=== PATIENT | male | born 1965 | race Caucasian/White ===

== ENCOUNTER 2024-04-05 08:20 | Outpatient (AMB) | payer OTHER, SELFPAY ==
--- NOTE | 2024-04-05 08:23 | A.OFFVIS_ITS ---
Vital Signs 3 04/05/24 08:33 Height 5 ft 10 in Weight 210 lb BMI 30.1 BP 135/92 H Blood Pressure Location Rt brachial Position Sitting Pulse 104 H Intake Visit Reasons: Foot Wound Intake Note: This patient presents for left foot wound. Pt c/o; left foot wound. Instructional Resource Teacher Required: No Accompanied by: Self / Same As Patient Allergies No Known Allergies Allergy (Verified 04/05/24 08:34) HPI Comments Details: 59-year-old male patient with history of diabetes, coronary artery disease, [place], CABG x4 vessels presenting with a nonhealing ulcer of the left foot dorsal surface after injuring it on his bed. He developed a staph infection in his been undergoing wound care management for the past several months including wound VAC placement. He now has a granulated base and presents today to discuss possible skin graft to the left foot. He denies any significant pain associated with the wound. He denies a history of previous surgery in the left leg. [facility] Medical History (Updated 04/05/24 @ 09:49 by Daniel Moreno MD) Diabetes mellitus [place] (myocardial infarction) CAD (coronary artery disease) Surgical History (Updated 04/05/24 @ 09:44 by Daniel Moreno MD) S/P CABG x 4 No pertinent past surgical history Family History (Updated 04/05/24 @ 08:36 by TANMAY Quinones) Other Family history unknown Social History (Updated 04/05/24 @ 08:35 by TANMAY Quinones) Unable to assess alcohol history related to: Unknown Review of Systems Const All systems reviewed & are unremarkable except as noted in HPI and below Physical Exam Vital Signs: Last Vital Signs Pulse 104 H 04/05/24 08:33 BP 135/92 H 04/05/24 08:33 BMI result Body Mass Index 30.1 Const General: cooperative and no acute distress Nutritional Appearance: well nourished Orientation/consciousness: patient oriented x3 Limitations: no limitations HEENT Head: Yes normocephalic and Yes atraumatic Ears: hearing grossly normal bilaterally Resp Effort & Inspection: normal respiratory effort, no audible wheezes, no cough and no respiratory distress Cardio Jugular venous distension: no JVD GI Inspection: Yes normal to inspection Skin Other: Warm, dry, no rash Neuro General: patient oriented x3 Extrem Other: 5.6 x 2.5 cm tear shaped ulceration with granulated base and no exposed bone or tendon. No surrounding erythema or skin necrosis. General: Yes no clubbing, cyanosis or edema Ankle/foot/toe images: 2 1. Site of ulceration left foot Assessment & Plan Assessment & Plan (1) Diabetic foot ulcer: Code(s): E11.621 - Type 2 diabetes mellitus with foot ulcer; L97.509 - Non-pressure chronic ulcer of other part of unspecified foot with unspecified severity Category: Medical Qualifiers: Diabetic foot ulcer location: midfoot Diabetes mellitus type: type 2 L aterality: left Non-pressure ulcer stage: with muscle involvement without evidence of necrosis Qualified Code(s): E11.621 - Type 2 diabetes mellitus with foot ulcer; L97.425 - Non-pressure chronic ulcer of left heel and midfoot with muscle involvement without evidence of necrosis Plan 59-year-old male patient presenting with a nonhealing ulcer of the left foot which has an excellent granulated base measuring 5.6 x 2.5 cm located in the midfoot. He would be an excellent candidate for a split-thickness skin graft for wound closure. We discussed the procedure, risks, and alternatives, we also discussed staying off his feet as much as possible to allow good adherence of the meshed graft to the wound base. After discussion of the procedure, risks, and alternatives, he consents to a split-thickness skin graft from the left hip to the left foot. This will be scheduled as a short-stay surgery. Coding Level of Care Code New Pt Level 4 (88483) Diagnoses Diabetic ulcer of left midfoot associated with type 2 diabetes mellitus, with muscle involvement without evidence of necrosis E11.621; L97.425 Diabetic foot ulcer location: midfoot Diabetes mellitus type: type 2 Laterality: left Non-pressure ulcer stage: with muscle involvement without evidence of necrosis
[2024-04-05 08:33] VITALS: BP 135/92; PULSE 104; BMI 30.1
== END 2024-04-05 09:07 | disposition home or self-care (01) ==
PROVIDERS: PCP Surgery; Visit Provider Surgery
DX: E11.621 Type 2 diabetes mellitus with foot ulcer (principal); L97.425 Non-pressure chronic ulcer of left heel and midfoot with muscle involvement without evidence of necrosis
CPT/HCPCS: 99204

== ENCOUNTER 2024-04-10 09:32 | Outpatient (RCR) | payer OTHER, SELFPAY | END 2024-05-14 12:34 | disposition home or self-care (01) | LOC: HO.WCC 09:32 | PROVIDERS: Visit Provider Surgery | DX: L97.522 Non-pressure chronic ulcer of other part of left foot with fat layer exposed (principal); M65.072 Abscess of tendon sheath, left ankle and foot; Z79.4 Long term (current) use of insulin; Z79.84 Long term (current) use of oral hypoglycemic drugs; Z79.82 Long term (current) use of aspirin; Z79.899 Other long term (current) drug therapy | CPT/HCPCS: 11042; 11043; 11046; 97597; 97598; 97602; 97605; 99212; 99213 ==

== ENCOUNTER 2024-04-15 08:42 | Day surgery (SDC) | payer OTHER, SELFPAY ==
--- NOTE | 2024-04-12 09:48 | P.CONAN_ITS ---
Documented by User: Sylvie Lowry NP 04/12/24 09:52 HPI - Anesthesia Eval Consult details Narrative: 59yo M for Left Skin Graft, Split Thickness hip to foot Follows [facility] cardiology for CAD/RI s/p CABG x 4 11/2022 [facility] admit 12/2023 with bacteremia. Completed 6 weeks abx. ? vegetation noted on tricuspid valve. Last A1C >10 (01/2024). Surgeon aware. Anesthesia Pre-Procedure Meds Is the patient on any of the following meds?: GLP1/DPP4 PMFSH Active Problems Active Problems: All Active Problems Diabetic foot ulcer (Acute) [place] (myocardial infarction) (Acute) Diabetes mellitus (Acute) CAD (coronary artery disease) (Acute) Past Medical History Medical History Hx of bacteremia Hypothyroidism [place] (myocardial infarction) Diabetes mellitus CAD (coronary artery disease) Family History Family History Other Family history unknown Surgical History Surgical History S/P PICC central line placement (~12/2023) Hx of foot surgery S/P CABG x 4 (~12/2022) Social History Social History Household Members: Spouse Housing: House Are you a primary care transition mgr to a significant other at home: No Do you presently have visiting nurse or other home services: No Patient Tobacco Use Status: Former Tobacco user Tobacco use type: Cigarette Smoked in Last 30 Days: No Use of substances other than those prescribed or required for medical reasons: No Have you been hit, kicked, punched, or otherwise hurt by someone within the past year? If so, by whom?: No Are you DNR?: No Advance Directives: No (will bring DOS) Advance Directives Information Provided: Yes Advance Directives on File: No Recently lost weight without trying: Yes How much weight loss: 24-33 pounds Eating poorly because of decreased appetite: Yes Nutrition screen score: 6 Nutrition Risks: No Nutritional Risk Meds Allergies Allergy/AdvReac Type Severity Reaction Status Date / Time No Known Allergies Allergy Verified 04/15/24 09:00 Home Medications ?Medication ?Instructions ?Recorded ?Confirmed ?Last Taken ?Type aspirin 81 mg tablet,delayed 81 mg PO DAILY 04/05/24 04/12/24 04/15/24 07:30 History release atorvastatin 80 mg tablet 80 mg PO DAILY 04/05/24 04/12/24 Unknown History dulaglutide 0.75 mg/0.5 mL 0.75 mg subcut QWEEK 04/05/24 04/12/24 04/05/24 History subcutaneous pen injector (Trulicity) insulin glargine 100 unit/mL (3 25 unit subcut QAM 04/05/24 04/12/24 Unknown History mL) subcutaneous pen (Lantus Solostar U-100 Insulin) insulin lispro 100 unit/mL 15 - 33 sliding scale dose subcut 04/05/24 04/12/24 Unknown History subcutaneous pen (Humalog KwikPen TID (U-100) Insulin) levothyroxine 150 mcg tablet 150 mcg PO DAILY 04/05/24 04/12/24 Unknown History lisinopril 10 mg tablet 10 mg PO DAILY 04/05/24 04/12/24 Unknown History metformin 500 mg tablet,extended 500 mg PO BID 04/05/24 04/12/24 Unknown History release 24 hr metoprolol succinate 50 mg 50 mg PO DAILY 04/05/24 04/12/24 04/15/24 07:30 History tablet,extended release 24 hr Exam Pertinent Lab Results Pertinent Lab Results: Cardiology Labs WBC:?11.2 k/mm3?High (01/02/24) RBC:?4.46 m/mm3?Low (01/02/24) Hgb:?11.7 Gm/dL?Low (01/02/24) Hct:?36.2 %?Low (01/02/24) MCV: 81.2 femtoliters (01/02/24) MCH:?26.2 pg?Low (01/02/24) MCHC:?32.3 g/dL?Low (01/02/24) Platelet Count:?484 k/mm3?High (01/02/24) RDW-SD: 37.3 femtoliters (01/02/24) Nucleated RBC (Automated): 0 #/100 WBC'S (01/02/24) Abs. Neut:?7.9 k/mm3?High (01/02/24) Abs. Lymph: 2.6 k/mm3 (01/02/24) Abs. Weber: 0.5 k/mm3 (01/02/24) Abs. Eo: 0.1 k/mm3 (01/02/24) Abs. Baso: 0.1 k/mm3 (01/02/24) Neut %: 70.7 % (01/02/24) Weber %: 4.5 % (01/02/24) Eos %: 1.2 % (01/02/24) Baso %: 0.4 % (01/02/24) Imm Gran: 0.5 % (01/02/24) Abs. Imm Gran: 0.1 k/mm3 (01/02/24) Sodium: 139 mmol/L (01/02/24) Potassium: 3.7 mmol/L (01/02/24) Chloride: 102 mmol/L (01/02/24) Bicarbonate Level: 25 mmol/L (01/02/24) Glucose Level:?127 mg/dL?High (01/02/24) Hemoglobin A1C (Monitoring):?13.3 %?High (12/21/23) BUN: 8 mg/dL (01/02/24) BUN: 18 mg/dL (12/21/23) Creatinine-Blood: 0.77 mg/dL (01/02/24) Calcium:?8.2 mg/dL?Low (01/02/24) Protein, Total:?5.8 Gm/dL?Low (12/25/23) Albumin:?2.5 Gm/dL?Low (12/25/23) Alkaline Phosphatase:?154 units/L?High (12/25/23) AST (SGOT):?62 units/L?High (12/25/23) ALT (SGPT): 31 units/L (12/25/23) Bilirubin, Total: 0.4 mg/dL (12/25/23) CK, Total: 28 units/L (12/25/23) TSH:?10 uIU/mL?High (12/22/23) Free T4: 0.87 ng/dL (12/22/23) Narrative Narrative: Echo done??12/25/2023: normal LV size wall thickness upper limit of normal with normal systolic function.? LVEF 55 to 60% no obvious wall motion abnormality seen on limited views.? Left atrium poorly visualized normal left atrial size.? No aortic stenosis no significant aortic regurgitation.? Aortic valve probably trileaflet.? Mitral valve grossly normal trace mitral regurgitation.? Aortic root normal in size.? Right ventricle poorly visualized.? RV systolic function appeared preserved.? Right atrium poorly visualized.? Trace pulmonic regurgitation.? Mild focal thickening on the ventricular aspect of the tricuspid valve possibly representing chordal attachment however underlying vegetation cannot be excluded.? There is trace tricuspid regurgitation.? IVC appeared grossly normal and inspiratory collapse was normal.? There was no significant pericardial effusion. ECG 12-Lead ? 11:02:54 Ventricular Rate: 93 BPM Atrial Rate: 93 BPM P-R Interval: 136 ms QRS Duration: 94 ms Q-T Interval: 384 ms QTC Calculation(Bazett): 477 ms P [place]: 57 degrees R [place]: 28 degrees T [place]: 24 degrees Normal sinus rhythm Possible Left atrial enlargement Borderline ECG When compared with ECG of 23-DEC-2022 07:50, Nonspecific T wave abnormality now evident in Inferior leads Nonspecific T wave abnormality has replaced inverted T waves in Anterior leads Confirmed by MORENITA PANDEY ([id number]) on 12/22/2023 11:10:40 AM VL Carotid Duplex Scan Bilat ? 15:09:41 Summary: Right Side: 1-49% stenosis in the Internal Carotid Artery. The stenosis estimate is at the higher end of the range. Antegrade flow in the Vertebral Artery. Turbulent / disturbed flow is seen in the Subclavian Artery. Left Side: 1-49% stenosis in the Internal Carotid Artery. The stenosis estimate is at the upper end of the range. Antegrade flow in the Vertebral Artery. Turbulent / disturbed flow is seen in the Subclavian Artery. There is no previous exam for comparison. Assessment and Plan Assessment Anesthesia Assessment: Chart Reviewed Documented by User: Leta Martinez MD 04/15/24 10:44 [facility] Past Medical History Medical History Hx of bacteremia Hypothyroidism [place] (myocardial infarction) Diabetes mellitus CAD (coronary artery disease) Family History Family History Other Family history unknown Surgical History Surgical History S/P PICC central line placement (~12/2023) Hx of foot surgery S/P CABG x 4 (~12/2022) History of Problems with Anesthesia: No Social History Social History Household Members: Spouse Housing: House Are you a primary care transition mgr to a significant other at home: No Do you presently have visiting nurse or other home services: No Patient Tobacco Use Status: Former Tobacco user Tobacco use type: Cigarette Smoked in Last 30 Days: No Use of substances other than those prescribed or required for medical reasons: No Have you been hit, kicked, punched, or otherwise hurt by someone within the past year? If so, by whom?: No Are you DNR?: No Advance Directives: No (will bring DOS) Advance Directives Information Provided: Yes Advance Directives on File: No Recently lost weight without trying: Yes How much weight loss: 24-33 pounds Eating poorly because of decreased appetite: Yes Nutrition screen score: 6 Nutrition Risks: No Nutritional Risk Meds Allergies Allergy/AdvReac Type Severity Reaction Status Date / Time No Known Allergies Allergy Verified 04/15/24 09:00 Home Medications ?Medication ?Instructions ?Recorded ?Confirmed ?Last Taken ?Type aspirin 81 mg tablet,delayed 81 mg PO DAILY 04/05/24 04/12/24 04/15/24 07:30 History release atorvastatin 80 mg tablet 80 mg PO DAILY 04/05/24 04/12/24 Unknown History dulaglutide 0.75 mg/0.5 mL 0.75 mg subcut QWEEK 04/05/24 04/12/24 04/05/24 History subcutaneous pen injector (Trulicity) insulin glargine 100 unit/mL (3 25 unit subcut QAM 04/05/24 04/12/24 Unknown History mL) subcutaneous pen (Lantus Solostar U-100 Insulin) insulin lispro 100 unit/mL 15 - 33 sliding scale dose subcut 04/05/24 04/12/24 Unknown History subcutaneous pen (Humalog KwikPen TID (U-100) Insulin) levothyroxine 150 mcg tablet 150 mcg PO DAILY 04/05/24 04/12/24 Unknown History lisinopril 10 mg tablet 10 mg PO DAILY 04/05/24 04/12/24 Unknown History metformin 500 mg tablet,extended 500 mg PO BID 04/05/24 04/12/24 Unknown History release 24 hr metoprolol succinate 50 mg 50 mg PO DAILY 04/05/24 04/12/24 04/15/24 07:30 History tablet,extended release 24 hr Exam Airway Mallampati Class: III TM Dist: >3cm Neck ROM: Full Loose/Missing/Broken Teeth: No Heart: RRR Lungs: CTA Assessment and Plan Assessment Anesthesia Assessment: Anesthesia Plan Discussed Final Anesthetic Review History of Problems with Anesthesia: No NPO: Yes ASA Class: III Final Preanesthetic Review: Meds/Allgs Chart Reviewed, Consent Obtained/Reviewed and Anes Risks/Benef Reviewed Patient Risk: Intermediate Procedure Risk: Low Anesthetic Plan Anesthetic Plan: GA Disposition: Standard PACU
[2024-04-12 11:50] VITALS: BP 156/88; PULSE 88; RESP 16; O2SAT 100; BMI 30.6
[2024-04-15 09:09] VITALS: BP 163/95; PULSE 67; RESP 15; TEMP 36.1; O2SAT 99
[2024-04-15 09:30] LABS: Glucose, Whole Blood 279 mg/dL (60-115)
[2024-04-15] MEDS: Insulin Lispro 100 UNIT/ML 3 ML VIAL 10 UNIT SUBCUT (09:54)
[2024-04-15] MEDS: Lactated Ringers 1,000 ML 100 ML IVCONT (09:55)
[2024-04-15 10:31] LABS: Glucose, Whole Blood 292 mg/dL (60-115)
--- NOTE | 2024-04-15 10:58 | MHC.SHP ---
Pre-Procedural Eval Section A - 24 Hr Update-Section A only Date of Service: 04/15/24 The patient is an INPATIENT: No Changes since office visit: Yes Patient answered all questions; No Cold of Flu in the past 2 weeks, No New Medical Problems and No Changes in Medication The patient has been examined within 24 hours of the surgical procedure. The History & Physical has been completed within 30 days and I have reviewed it.: Yes Section B - Complete if H&P > 30 days Chief Complaint: Type 2 diabetes mellitus with foot ulcer Allergies: Allergies Allergy/AdvReac Type Severity Reaction Status Date / Time No Known Allergies Allergy Verified 04/15/24 09:00 Plan Diagnosis/Plan: Unchanged I have reviewed the history and physical and performed a pertinent physical examination on my patient. No changes have occurred unless specified. Time Spent With Patient Time: Total time managing care of this patient today ____ minutes.
--- NOTE | 2024-04-15 11:53 | W.PM.OPN ---
Operative Note Operative Note Date of Service: 04/15/24 Narrative: Preoperative diagnosis: Diabetic foot ulcer left Postoperative diagnosis: Same Procedure: Split-thickness skin graft from left hip to left foot Surgeon: Daniel Moreno MD Oiling Machine Operator: Alice Cooley PA-C Anesthesia: General LMA Indications for procedure: 59-year-old male patient with a prolonged history of a nonhealing ulcer of the left foot presenting today for skin grafting. Operative findings: Excellent granulated base at Wound measuring 6 x 2 cm Specimen: None Estimated blood loss: 4 mL Complications: None Procedure details: Patient was brought to the OR placed in a supine position. After administering general anesthesia the patient's left hip was prepped with ChloraPrep and left foot prepped with Betadine. Patient was then draped in a sterile fashion. A surgical time-out was called the consent confirmed. Patient received preoperative antibiotics and Venodyne boots were in place. Local anesthesia was infiltrated at the left hip. A curette was then used to debride the granulation tissue of nonviable tissue around the foot ulcer. No evidence of skin necrosis was identified. The ulcer measured 2 x 6 cm. Using a dermatome set at 0.15, a 2 x 6 cm skin graft was obtained from the left hip. This was then meshed 1-1.5. The mesh graft was then applied to the skin ulcer and secured circumferentially using a 4-0 chromic suture. Sutures were placed also in the central portion of the skin graft to assure adherence. The graft was then covered with Xeroform followed by fluff gauze followed by Kerlix followed by an Ej bandage. The graft site was covered with Xeroform followed by ABD and paper tape. The patient tolerated the procedure well. Sponge, instrument, and needle counts were reported as correct. He was transfer to recovery room in stable condition.
[2024-04-15 12:00] VITALS: BP 134/89; PULSE 78; RESP 18; TEMP 35.9; O2SAT 100
[2024-04-15 12:05] VITALS: BP 139/87; PULSE 69; RESP 18; O2SAT 97
[2024-04-15 12:10] VITALS: BP 138/85; PULSE 69; RESP 18; O2SAT 97
[2024-04-15 12:15] VITALS: BP 135/88; PULSE 66; RESP 20; O2SAT 97
[2024-04-15 12:30] VITALS: BP 147/91; PULSE 73; RESP 18; TEMP 36.1; O2SAT 99
[2024-04-15 12:51] LABS: Glucose, Whole Blood 218 mg/dL (60-115)
== END 2024-04-15 13:51 | disposition home or self-care (01) ==
PROVIDERS: PCP Internal Medicine; Visit Provider Surgery
PROC: (CPT 15100; principal; 2024-04-15 11:30)
DX: E11.621 Type 2 diabetes mellitus with foot ulcer (principal); L97.425 Non-pressure chronic ulcer of left heel and midfoot with muscle involvement without evidence of necrosis; I25.10 Atherosclerotic heart disease of native coronary artery without angina pectoris; Z95.1 Presence of aortocoronary bypass graft; I25.2 Old myocardial infarction; Z86.14 Personal history of Methicillin resistant Staphylococcus aureus infection; I10 Essential (primary) hypertension; E78.5 Hyperlipidemia, unspecified; Z79.4 Long term (current) use of insulin; Z79.84 Long term (current) use of oral hypoglycemic drugs; Z79.85 Long-term (current) use of injectable non-insulin antidiabetic drugs; Z79.82 Long term (current) use of aspirin; Z79.899 Other long term (current) drug therapy; Z98.890 Other specified postprocedural states; Z87.891 Personal history of nicotine dependence
CPT/HCPCS: 15100; 82947; J0690; J2003; J2004; J2250; J2405; J2704; J2795; J3010

== ENCOUNTER → 2024-04-15 08:42 | Outpatient (BNV) | payer OTHER, SELFPAY | PROVIDERS: PCP Internal Medicine; Visit Provider Surgery | DX: E11.621 Type 2 diabetes mellitus with foot ulcer (principal); L97.425 Non-pressure chronic ulcer of left heel and midfoot with muscle involvement without evidence of necrosis | CPT/HCPCS: 15004; 15120 ==

== ENCOUNTER 2024-04-17 11:40 | Outpatient (AMB) | payer OTHER, SELFPAY ==
--- NOTE | 2024-04-17 12:02 | MHC.OFFVIS ---
Intake Visit Reasons: S/P skin graft Lt hip to Lt foot DRSG CHANGE , Patient returns for dressing change Allergies No Known Allergies Allergy (Verified 04/15/24 09:00) Medication List - Last Reconciled 04/17/24 by Daniel Moreno MD aspirin 81 mg PO DAILY atorvastatin 80 mg PO DAILY dulaglutide (Trulicity) 0.75 mg subcut QWEEK insulin glargine (Lantus Solostar U-100 Insulin) 25 units subcut QAM insulin lispro (Humalog KwikPen (U-100) Insulin) 15 - 33 sliding scale doses subcut TID levothyroxine 150 mcg PO DAILY lisinopril 10 mg PO DAILY metformin ER 500 mg PO BID metoprolol succinate ER 50 mg PO DAILY oxycodone 5 mg PO Q6H PRN HPI Comments Details: 59-year-old male patient with history of diabetes, coronary artery disease, [place], CABG x4 vessels presenting with a nonhealing ulcer of the left foot dorsal surface after injuring it on his bed. He developed a staph infection in his been undergoing wound care management for the past several months including wound VAC placement. He subsequently developed a good [facility]ulated [facility] and underwent a split-thickness skin graft from the left hip to the left foot on 04/15/2024. He tolerated the procedure well and returns today for wound examination and dressing change. [facility] Medical History Hx of bacteremia Hypothyroidism [place] (myocardial infarction) Diabetes mellitus CAD (coronary artery disease) Surgical History S/P PICC central line placement (~12/2023) Hx of foot surgery S/P CABG x 4 (~12/2022) Family History Other Family history unknown Social History Household Members: Spouse Housing: House Are you a primary day care home mother to a significant other at home: No Do you presently have visiting nurse or other home services: No Unable to assess alcohol history related to: Unknown Patient Tobacco Use Status: Former Tobacco user Tobacco use type: Cigarette Physical Exam Const General: comfortable Nutritional Appearance: well nourished Orientation/consciousness: patient oriented x3 Limitations: wheelchair Resp Effort & Inspection: normal respiratory effort, no audible wheezes, no cough and no respiratory distress Neuro General: patient oriented x3 Extrem Other: Left foot dressing changed. Graft is 100% take with intact sutures and no evidence of hematoma or seroma. Dressings replaced with Adaptic followed by fluff gauze, Kerlix and 4 in Ej bandage. Preop: Postop day 2: Assessment & Plan Assessment & Plan (1) Diabetic foot ulcer: Code(s): E11.621 - Type 2 diabetes mellitus with foot ulcer; L97.509 - Non-pressure chronic ulcer of other part of unspecified foot with unspecified severity Category: Medical Qualifiers: Diabetic foot ulcer location: midfoot Diabetes mellitus type: type 2 Laterality: left Non-pressure ulcer stage: with muscle involvement without evidence of necrosis Qualified Code(s): E11.621 - Type 2 diabetes mellitus with foot ulcer; L97.425 - Non-pressure chronic ulcer of left heel and midfoot with muscle involvement without evidence of necrosis Plan Pod 2 following split-thickness skin graft to the left foot. Both the graft and donor sites are clean and healing appropriately. Dressings were changed. Family instructed on local wound care. He will need a dressing change in approximately 3 days and should return early next week for wound check. He should continue to avoid prolonged standing and walking. He expressed understanding and agrees with the plan. Coding Level of Care Code Global (27758) Diagnoses Diabetic ulcer of left midfoot associated with type 2 diabetes mellitus, with muscle involvement without evidence of necrosis E11.621; L97.425 Diabetic foot ulcer location: midfoot Diabetes mellitus type: type 2 Laterality: left Non-pressure ulcer stage: with muscle involvement without evidence of necrosis
== END 2024-04-17 12:02 | disposition home or self-care (01) ==
PROVIDERS: PCP Internal Medicine; Visit Provider Surgery
DX: E11.621 Type 2 diabetes mellitus with foot ulcer (principal); L97.425 Non-pressure chronic ulcer of left heel and midfoot with muscle involvement without evidence of necrosis
CPT/HCPCS: 99024

== ENCOUNTER → 2024-04-17 11:40 | Outpatient (BNVA) | payer OTHER, SELFPAY | PROVIDERS: PCP Internal Medicine; Visit Provider Surgery ==

== ENCOUNTER 2024-04-23 13:28 | Outpatient (AMB) | payer OTHER, SELFPAY ==
--- NOTE | 2024-04-23 13:38 | A.OFFVIS_ITS ---
Vital Signs 3 04/23/24 13:51 Height 5 ft 9 in Weight 207 lb 0.225 oz BMI 30.6 Pulse 72 Intake Visit Reasons: dressing change Intake Note: Patient is seen in office for dressing change, post skin graft of the left hip to the left foot. Pt c/o: here for dressing change, has been changing dressing at home last time was on Monday, states wound is healing as expected. Station Installer And Repairer Required: No Accompanied by: Family/Other Allergies No Known Allergies Allergy (Verified 04/23/24 13:50) Medication List - Last Reconciled 04/24/24 by Daniel Moreno MD aspirin 81 mg PO DAILY atorvastatin 80 mg PO DAILY dulaglutide (Trulicity) 0.75 mg subcut QWEEK insulin glargine (Lantus Solostar U-100 Insulin) 25 units subcut QAM insulin lispro (Humalog KwikPen (U-100) Insulin) 15 - 33 sliding scale doses subcut TID levothyroxine 150 mcg PO DAILY lisinopril 10 mg PO DAILY metformin ER 500 mg PO BID metoprolol succinate ER 50 mg PO DAILY oxycodone 5 mg PO Q6H PRN HPI Comments Details: Patient returns today for wound check and dressing change. Patient's was able to change the dressing over the weekend without difficulty. He denies any new symptoms. [facility] Medical History Hx of bacteremia Hypothyroidism [place] (myocardial infarction) Diabetes mellitus CAD (coronary artery disease) Surgical History S/P PICC central line placement (~12/2023) Hx of foot surgery S/P CABG x 4 (~12/2022) Family History Other Family history unknown Social History Household Members: Spouse Housing: House Are you a primary rental boats caretaker to a significant other at home: No Do you presently have visiting nurse or other home services: No Unable to assess alcohol history related to: Unknown Patient Tobacco Use Status: Former Tobacco user Tobacco use type: Cigarette Physical Exam Vital Signs: Last Vital Signs Pulse 72 04/23/24 13:51 BMI result Body Mass Index 30.6 Const General: no acute distress Nutritional Appearance: well nourished Limitations: wheelchair Resp Effort & Inspection: normal respiratory effort Extrem Other: Left foot dressing changed. Good take of skin graft with 100% take and intact sutures. New dressings applied. Preop photo: Postop day 2 photo: Postop day 8: Assessment & Plan Assessment & Plan (1) Diabetic foot ulcer: Code(s): E11.621 - Type 2 diabetes mellitus with foot ulcer; L97.509 - Non-pressure chronic ulcer of other part of unspecified foot with unspecified severity Category: Medical Qualifiers: Diabetic foot ulcer location: midfoot Diabetes mellitus type: type 2 L aterality: left Non-pressure ulcer stage: with muscle involvement without evidence of necrosis Qualified Code(s): E11.621 - Type 2 diabetes mellitus with foot ulcer; L97.425 - Non-pressure chronic ulcer of left heel and midfoot with muscle involvement without evidence of necrosis Plan Skin graft remains intact with 100% take. Patient will return in 2 days for wound check and dressing change. He may begin some light ambulation. Coding Level of Care Code Global (28852) Diagnoses Diabetic ulcer of left midfoot associated with type 2 diabetes mellitus, with muscle involvement without evidence of necrosis E11.621; L97.425 Diabetic foot ulcer location: midfoot Diabetes mellitus type: type 2 Laterality: left Non-pressure ulcer stage: with muscle involvement without evidence of necrosis
[2024-04-23 13:51] VITALS: PULSE 72; BMI 30.6
--- OUTSIDE RECORDS SUMMARY | 2024-04-30 14:28 | XMS_ITS | Continuity of Care Document ---
Author Organization [facility] Address [address] [place] [id number]- Care Team Providers Care Systems Architecture Analyst Name Role Phone Devin Gee NP Primary Care Physician ( [phone] Encounter [facility] [place] Date(s): 03/02/24 - 04/01/24 [facility] [address] [place] [id number]- Allergies, Adverse Reactions, Alerts No Known Allergies Immunizations Given and Recorded Vaccine Date Status Refusal Reason SARS-CoV-2 (COVID-19) mRNA BNT-162b2 vac 05/17/21 Recorded Medications acetaminophen 325 mg oral tablet 40 each, 0 Refill(s), TAKE 3 TABLETS BY MOUTH EVERY 8 HOURS NEEDED FOR MILD PAIN OR TEMPERATURE GREATER THAN 100.5. (LIMIT 4000MG OF TYLENOL/ACETAMINOPHEN PER DAY), Refills 0, 03/19/24 16:34:00 EDT, Partial fill upon patient request if the prescrip... Start Date: 03/19/24 Status: Ordered aspirin 81 mg oral delayed release tablet = 81 mg, By Mouth, Daily, # 90 tablet, 3 Refills, Maintenance, 04/19/23 9:10:00 EST, EC Tablet, [id number], Partial fill upon patient request if the prescription is for a schedule II opioid drug., 175, cm, 04/07/23 11:49:00 EST, Height, 97, kg... Start Date: 04/19/23 Status: Ordered Aspirin Low Dose 81 mg oral delayed release tablet 90 each, 0 Refill(s), TAKE 1 TABLET BY MOUTH EVERY DAY, 0 Refills, 03/19/24 16:34:00 EDT, Partial fill upon patient request if the prescription is for a schedule II opioid drug. Start Date: 03/19/24 Status: Ordered atorvastatin 80 mg oral tablet = 80 mg, By Mouth, Daily at bedtime, # 90 tablet, 3 Refills, Maintenance, 04/19/23 9:10:00 EST, Tablet, [facility]/pharmacy #[id number], Partial fill upon patient request if the prescription is for a schedule II opioid drug., 175, cm, 04/07/23 11:49:00 EST, Height... Start Date: 04/19/23 Status: Ordered cephalexin monohydrate 500 mg oral capsule 30 each, 0 Refill(s), TAKE 1 CAPSULE BY MOUTH 3 TIMES A DAY FOR 10 DAYS, 0 Refills, 03/19/24 16:34:00 EDT, Partial fill upon patient request if the prescription is for a schedule II opioid drug. Start Date: 03/19/24 Status: Ordered cephalexin monohydrate 500 mg oral tablet 56 each, 0 Refill(s), TAKE 1 TABLET BY MOUTH FOUR TIMES A DAY FOR 14 DAYS, 0 Refills, 03/19/24 16:34:00 EDT, Partial fill upon patient request if the prescription is for a schedule II opioid drug. Start Date: 03/19/24 Status: Ordered cyclobenzaprine 10 mg oral tablet 15 each, 0 Refill(s), TAKE 1 TABLET BY MOUTH EVERY 8 HOURS NEEDED FOR MUSCLE SPASM, Refills 0, 03/19/24 16:34:00 EDT, Partial fill upon patient request if the prescription is for a schedule II opioid drug. Start Date: 03/19/24 Status: Ordered Humalog Kwik Pen 100 units/mL subcutaneous injection See Instructions, INJECT SUBCUTANEOUSLY 3 TIMES A DAY BEFORE MEALS << SLIDING SCALE COMMENTS >> 100 - 149 6 UNITS CALL IF LESS THAN 70 150 - 199 8 UNITS 200 - 249 10 UNITS 250 - 299 12 UNITS 300 - 349 14 UNITS 350 - 399 16 UNITS CALL IF GREATER THAN 4... Start Date: 01/26/24 Status: Ordered HumaLOG KwikPen 100 units/mL injectable solution See Instructions, Please take at least 10-15 minutes before meals 3 times a day per the scale: BG 100-149: 10 units ; BG ; 150-199: 12 units; BG 200-249: 14 units; BG ; 250-299: 16 units ; BG ; 300-349: 18; units; BG 350-399: 20; units; BG >400... Start Date: 02/29/24 Status: Ordered Lantus Solostar Pen 100 units/mL subcutaneous solution = 25 units, Subcutaneous Injection, Daily at bedtime, Please reach out to your PCP for continuation/ dose management of insulin, # 15 mL, 0 Refills, Maintenance, 01/03/24 17:55:00 EDT, Solution, [facility], Partial fill upon patient requ... Start Date: 01/03/24 Status: Ordered levothyroxine 150 mcg (0.15 mg) oral tablet 1 tablet = 150 mcg, By Mouth, Daily, # 90 tablet, 0 Refills, Maintenance, 03/22/24 9:53:00 EDT, Tablet, [facility]/pharmacy #[id number], Partial fill upon patient request if the prescription is for a schedule II opioid drug. Please disregard 0.25 dose that was sen... Start Date: 03/22/24 Status: Ordered lisinopril 10 mg oral tablet 10 mg, 1, tablet, By Mouth, Daily, # 90 tablet, Refills 3, Tot. Refills 3, Maintenance, 04/19/23 9:15:00 EST, Route to Pharmacy Electronically, [facility]/pharmacy #[id number], Partial fill upon patient request if the prescription is for a schedule II opioid drug.... Start Date: 04/19/23 Status: Ordered MetFORMIN (Eqv-Glucophage XR) 500 mg oral tablet, extended release 120 each, 0 Refill(s), TAKE 2 TABLETS BY MOUTH TWICE A DAY, 0 Refills, 03/19/24 16:34:00 EDT, Partial fill upon patient request if the prescription is for a schedule II opioid drug. Start Date: 03/19/24 Status: Ordered metFORMIN 500 mg oral tablet, extended release 1 tablet = 500 mg, By Mouth, 2 times a day, Please take as directed. 90 day supply. 4 tables daily split into two doses, # 360 each, 0 Refills, Maintenance, 09/19/23 12:16:00 EDT, ER Tablet, [id number], Partial fill upon patient request if the... Start Date: 09/19/23 Stop Date: 12/18/23 Status: Ordered metoprolol 50 mg oral tablet, extended release 50 mg, 1, tablet, By Mouth, Daily, # 90 tablet, Refills 3, Tot. Refills 3, Maintenance, 04/19/23 9:12:00 EST, Route to Pharmacy Electronically, [facility]/pharmacy #[id number], Partial fill upon patient request if the prescription is for a schedule II opioid drug.... Start Date: 04/19/23 Status: Ordered Metoprolol Succinate ER 50 mg oral tablet, extended release 90 each, 0 Refill(s), TAKE 1 TABLET BY MOUTH EVERY DAY, Refills 0, 03/19/24 16:34:00 EDT, Partial fill upon patient request if the prescription is for a schedule II opioid drug. Start Date: 03/19/24 Status: Ordered Miscellaneous Rx 0 Refills, 30 each, 0 Refill(s), USE TO INJECT NIGHTLY WITH LANTUS, 03/19/24 16:34:00 EDT Start Date: 03/19/24 Status: Ordered OXacillin Inj 2 Gm, IVPB, Every 4 hours, Maintenance, 01/03/24 17:58:00 EDT Start Date: 01/03/24 Status: Ordered oxyCODONE 5 mg oral tablet 6 each, 0 Refill(s), TAKE 1/2 (HALF) TABLET BY MOUTH EVERY 6 HOURS NEEDED FOR MODERATE PAIN., Refills 0, 03/19/24 16:34:00 EDT, Partial fill upon patient request if the prescription is for a schedule II opioid drug. Start Date: 03/19/24 Status: Ordered Pen [place], 31 G x 5 mm BD Ultra Fine III See Instructions, # 100 each, Refills 5, Tot. Refills 5, Maintenance, use as directed for Type 2 Diabetes Mellitus E11.65, 02/19/24 11:25:00 EDT, Supply, 174, cm, 02/19/24 8:53:00 EDT, Height, 91.4, kg, 12/22/23 14:06:00 EDT, Dry Weight Start Date: 02/19/24 Stop Date: 08/17/24 Status: Ordered Readi-Cat 2 Smoothie Creamy Vanilla 2% oral suspension 900 mL, 0 Refill(s), DRINK 1 BOTTLE 6 HOURS PRIOR TO TEST AND SECOND BOTTLE 90 MIN PRIOR TO SCAN, 0Refills, 03/19/24 16:34:00 EDT, Partial fill upon patient request if the prescription is for a schedule II opioid drug. Start Date: 03/19/24 Status: Ordered tamsulosin 0.4 mg oral capsule TAKE 1 CAPSULE BY MOUTH EVERY DAY FOR 10 DAYS Start Date: 12/22/23 Status: Ordered Trulicity Pen 0.75 mg/0.5 mL subcutaneous solution 0.5 mL = 0.75 mg, Subcutaneous Injection, Every week, rotate injection sites, # 2 mL, 1 Refills, Maintenance, 03/22/24 3:00:00 EDT, Solution, [facility]/pharmacy #[id number], Partial fill upon patient request if the prescription is for a schedule II opioid drug.,... Start Date: 03/22/24 Status: Ordered Problem List Condition Confirmation Course Effective Dates Status H ealth Status Informant HTN (hypertension), benign Confirmed Active CAD (coronary artery disease) Confirmed Active Low testosterone Confirmed Active Hyperlipidemia Confirmed Active Hypothyroidism Confirmed Active Inguinal hernia Confirmed Active Obese class I Confirmed Active DM2 (diabetes mellitus, type 2) Confirmed Active Social History Social History Type Response Smoking Status Former smoker, quit more than 30 days ago entered on: 07/07/21 Sex Patient Care team information Care Team Personnel Name: Devin Gee NP Position: [facility] PCO Associate Professional Member Role: PCP Address: Address: [address] [place] [address]- Name: Rachel Pritchett RN Position: [facility] RN Member Role: Primary Care Nurse Name: Denise Rankin RN Position: S RN Member Role: Primary Care Nurse Name: Carlos Ye RN Position: [facility] RN Member Role: Primary Care Nurse Name: Lord Ronquillo RN Position: [facility] RN Member Role: Primary Care Nurse Name: Jo Ann RN Position: S RN Member Role: Primary Care Nurse Name: Khushboo Rain RN Position: S RN Member Role: Primary Care Nurse Name: Panda Padilla RN Position: S RN Member Role: Primary Care Nurse Name: Casey Miranda RN Position: S RN Member Role: Primary Care Nurse Name: Mehnaz Green RN Position: S RN Member Role: Primary Care Nurse Care Team Related Persons Name: DORCAS PICKETT Address: [place] [address]
--- OUTSIDE RECORDS SUMMARY | 2024-04-30 14:28 | XMS_ITS | Continuity of Care Document ---
Author Organization [facility] Address [address] [place] [address]- Care Team Providers Care Barge Pilot Name Role Phone Devin Gee NP Primary Care Physician Encounter [facility] [place] Date(s): 03/07/24 - 04/06/24 [facility] [address] [place] [address]- Encounter Type: Triage Allergies, Adverse Reactions, Alerts No Known Allergies Immunizations Given and Recorded Vaccine Date Status Refusal Reason SARS-CoV-2 (COVID-19) mRNA BNT-162b2 vac 05/17/21 Recorded Medications acetaminophen 325 mg oral tablet 40 each, 0 Refill(s), TAKE 3 TABLETS BY MOUTH EVERY 8 HOURS NEEDED FOR MILD PAIN OR TEMPERATURE GREATER THAN 100.5. (LIMIT 4000MG OF TYLENOL/ACETAMINOPHEN PER DAY), Refills 0, 03/19/24 4:34:00 PM EDT, Partial fill upon patient request if the prescription is for a schedule II opioid drug. Start Date: 03/19/24 Status: Ordered Repeat number: 1 aspirin 81 mg oral delayed release tablet = 81 mg, By Mouth, Daily, # 90 tablet, 3 Refills, Maintenance, 04/19/23 9:10:00 AM EST, EC Tablet, [facility]/pharmacy #[id number], Partial fill upon patient request if the prescription is for a schedule II opioid drug., 175, cm, 04/07/23 11:49:00 EST, Height, 97, kg, 11/24/22 3:59:00 EDT, Dry Weight Start Date: 04/19/23 Status: Ordered Quantity: 90.0 Unit: tablet Repeat number: 4 Aspirin Low Dose 81 mg oral delayed release tablet 90 each, 0 Refill(s), TAKE 1 TABLET BY MOUTH EVERY DAY, 0 Refills, 03/19/24 4:34:00 PM EDT, Partialfill upon patient request if the prescription is for a schedule II opioid drug. Start Date: 03/19/24 Status: Ordered Repeat number: 1 atorvastatin 80 mg oral tablet = 80 mg, By Mouth, Daily at bedtime, # 90 tablet, 3 Refills, Maintenance, 04/03/24 1:12:00 PM EST, Tablet, [facility]/pharmacy #[id number], Partial fill upon patient request if the prescription is for a schedule II opioid drug., 174, cm, 03/22/24 8:51:00 EDT, Height, 91.4, kg, 12/22/23 14:06:00 EDT, Dry Weight Start Date: 04/03/24 Status: Ordered Quantity: 90.0 Unit: tablet Repeat number: 4 cephalexin monohydrate 500 mg oral capsule 30 each, 0 Refill(s), TAKE 1 CAPSULE BY MOUTH 3 TIMES A DAY FOR 10 DAYS, 0 Refills, 03/19/24 4:34:00 PM EDT, Partial fill upon patient request if the prescription is for a schedule II opioid drug. Start Date: 03/19/24 Status: Ordered Repeat number: 1 cephalexin monohydrate 500 mg oral tablet 56 each, 0 Refill(s), TAKE 1 TABLET BY MOUTH FOUR TIMES A DAY FOR 14 DAYS, 0 Refills, 03/19/24 4:34:00 PM EDT, Partial fill upon patient request if the prescription is for a schedule II opioid drug. Start Date: 03/19/24 Status: Ordered Repeat number: 1 cyclobenzaprine 10 mg oral tablet 15 each, 0 Refill(s), TAKE 1 TABLET BY MOUTH EVERY 8 HOURS NEEDED FOR MUSCLE SPASM, Refills 0, 03/19/24 4:34:00 PM EDT, Partial fill upon patient request if the prescription is for a schedule II opioid drug. Start Date: 03/19/24 Status: Ordered Repeat number: 1 Humalog Kwik Pen 100 units/mL subcutaneous injection See Instructions, INJECT SUBCUTANEOUSLY 3 TIMES A DAY BEFORE MEALS << SLIDING SCALE COMMENTS >> 100 - 149 6 UNITS CALL IF LESS THAN 70 150 - 199 8 UNITS 200 - 249 10 UNITS 250 - 299 12 UNITS 300 - 349 14 UNITS 350 - 399 16 UNITS CALL IF GREATER THAN 400 << SLIDING SCALE COMMENTS >>, # 15 Unknown, 0 Refills, Maintenance, 01/26/24 11:55:00 AM EDT, [id number], 174, cm, 01/05/24 14:46:00 EDT, Height, 91.4, kg, 12/22/23 14:06:00 EDT, Dry Weight Start Date: 01/26/24 Status: Ordered Quantity: 15.0 Unit: Unknown Repeat number: 1 HumaLOG KwikPen 100 units/mL injectable solution See Instructions, Please take at least 10-15 minutes before meals 3 times a day per the scale: BG 100-149: 10 units ; BG ; 150-199: 12 units; BG 200-249: 14 units; BG ; 250-299: 16 units ; BG ; 300-349: 18; units; BG 350-399: 20; units; BG >400: 22 units; E11.65; MDD 50 units, # 75 mL, 5 Refills, Maintenance, 02/29/24 7:05:00 AM EDT, [facility] #[id number], Partial fill upon patient request if theprescription is for a schedule II opioid drug., 174, cm, 02/22/24 9:04:00 EDT, Height, 91.4, kg, 12/22/23 14:06:00 EDT, Dry Weight Start Date: 02/29/24 Status: Ordered Quantity: 75.0 Unit: mL Repeat number: 6 Indication: Type 2 diabetes mellitus with hyperglycemia Lantus Solostar Pen 100 units/mL subcutaneous solution = 25 units, Subcutaneous Injection, Daily at bedtime, Please reach out to your PCP for continuation/ dose management of insulin, # 15 mL, 0 Refills, Maintenance, 01/03/24 5:55:00 PM EDT, Solution, [facility], Partial fill upon patient request if the prescription is for a schedule II opioid drug., 174, cm, 01/03/24 14:56:00 EDT, Height, 91.4, kg, 12/22/23 14:06:00 EDT, Dry Weight Start Date: 01/03/24 Status: Ordered Quantity: 15.0 Unit: mL Repeat number: 1 levothyroxine 150 mcg (0.15 mg) oral tablet 1 tablet = 150 mcg, By Mouth, Daily, # 90 tablet, 0 Refills, Maintenance, 03/22/24 9:53:00 AM EDT, Tablet, [facility]/pharmacy #[id number], Partial fill upon patient request if the prescription is for a schedule II opioid drug. Please disregard 0.25 dose that was sent prior. Sent in error., 174, cm, 03/22/24 8:51:00 EDT, Height, 91.4, kg, 12/22/23 14:06:00 EDT, Dry Weight Start Date: 03/22/24 Status: Ordered Quantity: 90.0 Unit: tablet Repeat number: 1 lisinopril 10 mg oral tablet 10 mg, 1, tablet, By Mouth, Daily, # 90 tablet, Refills 3, Tot. Refills 3, Maintenance, 04/03/24 1:12:00 PM EST, Route to Pharmacy Electronically, [facility]/pharmacy #[id number], Partial fill upon patient request if the prescription is for a schedule II opioid drug., 174, cm, 03/22/24 8:51:00 EDT, Height, 91.4, kg, 12/22/23 14:06:00 EDT, Dry Weight Start Date: 04/03/24 Status: Ordered Quantity: 90.0 Unit: tablet Repeat number: 4 MetFORMIN (Eqv-Glucophage XR) 500 mg oral tablet, extended release 120 each, 0 Refill(s), TAKE 2 TABLETS BY MOUTH TWICE A DAY, 0 Refills, 03/19/24 4:34:00 PM EDT, Partial fill upon patient request if the prescription is for a schedule II opioid drug. Start Date: 03/19/24 Status: Ordered Repeat number: 1 metFORMIN 500 mg oral tablet, extended release 1 tablet = 500 mg, By Mouth, 2 times a day, Please take as directed. 90 day supply. 4 tables daily split into two doses, # 360 each, 0 Refills, Maintenance, 09/19/23 12:16:00 PM EDT, ER Tablet, [facility]/pharmacy #[id number], Partial fill upon patient request if the prescription is for a schedule II opioid drug., 175, cm, 04/07/23 11:49:00 EST, Height, 97, kg, 11/24/22 3:59:00 EDT, Dry Weight Start Date: 09/19/23 Stop Date: 12/18/23 Status: Ordered Quantity: 360.0 Unit: each Repeat number: 1 Indication: Type 2 diabetes mellitus with hyperglycemia metoprolol 50 mg oral tablet, extended release 50 mg, 1, tablet, By Mouth, Daily, # 90 tablet, Refills 3, Tot. Refills 3, Maintenance, 04/03/24 1:12:00 PM EST, Route to Pharmacy Electronically, [facility]/pharmacy #[id number], Partial fill upon patient request if the prescription is for a schedule II opioid drug., 174, cm, 03/22/24 8:51:00 EDT, Height, 91.4, kg, 12/22/23 14:06:00 EDT, Dry Weight Start Date: 04/03/24 Status: Ordered Quantity: 90.0 Unit: tablet Repeat number: 4 Metoprolol Succinate ER 50 mg oral tablet, extended release 90 each, 0 Refill(s), TAKE 1 TABLET BY MOUTH EVERY DAY, Refills 0, 03/19/24 4:34:00 PM EDT, Partialfill upon patient request if the prescription is for a schedule II opioid drug. Start Date: 03/19/24 Status: Ordered Repeat number: 1 Miscellaneous Rx 0 Refills, 30 each, 0 Refill(s), USE TO INJECT NIGHTLY WITH LANTUS, 03/19/24 4:34:00 PM EDT Start Date: 03/19/24 Status: Ordered Repeat number: 1 OXacillin Inj 2 Gm, IVPB, Every 4 hours, Maintenance, 01/03/24 5:58:00 PM EDT Start Date: 01/03/24 Status: Ordered Repeat number: 1 oxyCODONE 5 mg oral tablet 6 each, 0 Refill(s), TAKE 1/2 (HALF) TABLET BY MOUTH EVERY 6 HOURS NEEDED FOR MODERATE PAIN., Refills 0, 03/19/24 4:34:00 PM EDT, Partial fill upon patient request if the prescription is for a schedule II opioid drug. Start Date: 03/19/24 Status: Ordered Repeat number: 1 Pen [place], 31 G x 5 mm BD Ultra Fine III See Instructions, # 100 each, Refills 5, Tot. Refills 5, Maintenance, use as directed for Type 2 Diabetes Mellitus E11.65, 02/19/24 11:25:00 AM EDT, Supply, 174, cm, 02/19/24 8:53:00 EDT, Height, 91.4, kg, 12/22/23 14:06:00 EDT, Dry Weight Start Date: 02/19/24 Stop Date: 08/17/24 Status: Ordered Quantity: 100.0 Unit: each Repeat number: 6 Indication: Type 2 diabetes mellitus with hyperglycemia Readi-Cat 2 Smoothie Creamy Vanilla 2% oral suspension 900 mL, 0 Refill(s), DRINK 1 BOTTLE 6 HOURS PRIOR TO TEST AND SECOND BOTTLE 90 MIN PRIOR TO SCAN, 0Refills, 03/19/24 4:34:00 PM EDT, Partial fill upon patient request if the prescription is for a schedule II opioid drug. Start Date: 03/19/24 Status: Ordered Repeat number: 1 tamsulosin 0.4 mg oral capsule TAKE 1 CAPSULE BY MOUTH EVERY DAY FOR 10 DAYS Start Date: 12/22/23 Status: Ordered Repeat number: 1 Trulicity Pen 0.75 mg/0.5 mL subcutaneous solution 0.5 mL = 0.75 mg, Subcutaneous Injection, Every week, rotate injection sites, # 2 mL, 1 Refills, Maintenance, 03/22/24 3:00:00 AM EDT, Solution, [id number], Partial fill upon patient request if the prescription is for a schedule II opioid drug., 174, cm, 03/19/24 16:38:00 EDT, Height, 91.4, kg, 12/22/23 14:06:00 EDT, Dry Weight Start Date: 03/22/24 Status: Ordered Quantity: 2.0 Unit: mL Repeat number: 2 Indication: Type 2 diabetes mellitus with hyperglycemia Problem List Condition Confirmation Course Effective Dates [...] 30 days ago entered on: 07/07/21 Sex Sex Representation Male (finding) Patient Care team information Care Team Personnel Name: Devin Gee NP Position: S PCO Associate Professional Member Role: PCP Address: [address] [place] [address]- Telecom: Name: Rachel Pritchett RN Position: S RN Member Role: Primary Care Nurse Name: Denise Rankin RN Position: S RN Member Role: Primary Care Nurse Name: Carlos Ye RN Position: S RN Member Role: Primary Care Nurse Name: Lord Ronquillo RN Position: S RN Member Role: Primary Care Nurse Name: Jo Ann RN Position: [facility] RN Member Role: Primary Care Nurse Name: Khushboo Rain RN Position: [facility] RN Member Role: Primary Care Nurse Name: Panda Padilla RN Position: [facility] RN Member Role: Primary Care Nurse Name: Casey Miranda RN Position: [facility] RN Member Role: Primary Care Nurse Name: Mehnaz Green RN Position: [facility] RN Member Role: Primary Care Nurse Care Team Related Persons Name: ARELIAKBARDORCAS Collazo Insurance Providers Guarantor name: SHANNAN SOSA Health Plan Information #: 1 Payer: [employer] Member Number: NA Policy Number: NA Group Number: NA Health Plan Information #: 2 Payer: [employer] Member Number: NA Policy Number: NA Group Number: NA Health Plan Information #: 3 Payer: [employer] Member Number: NA Policy Number: NA Group Number: NA
--- OUTSIDE RECORDS SUMMARY | 2024-04-30 14:28 | XMS_ITS | Continuity of Care Document ---
Author Organization [facility] Infectious Disease Address [address] [place] [address]- Care Team Providers Care General Agent Name Role Phone Gerard SANCHEZ, Devin Gould Primary Care Physician ( [phone] Encounter [facility] Date(s): 03/22/24 - 04/21/24 [facility] Infectious Disease [address] [place] [address] Attending Physician: Oxana Keith Admitting Physician: Oxana Keith Referring Physician: trOxana Encounter Type: Triage Allergies, Adverse Reactions, Alerts [...] Maintenance, 04/19/23 9:10:00 AM EST, EC Tablet, [id number], Partial fill [...] Refills, Maintenance, 04/03/24 1:12:00 PM EST, Tablet, [facility]/pharmacy #[id number], Partial fill upon patient request if [...] 0 Refills, Maintenance, 01/26/24 11:55:00 AM EDT, [facility] STORE 94429, 174, cm, 01/05/24 14:46:00 EDT, Height, 91.4, [...] 5 Refills, Maintenance, 02/29/24 7:05:00 AM EDT, [facility]/pharmacy #[id number], Partial fill upon patient request if [...] Refills, Maintenance, 01/03/24 5:55:00 PM EDT, Solution, [facility], Partial fill upon patient [...] Refills, Maintenance, 03/22/24 9:53:00 AM EDT, Tablet, [facility]/pharmacy #[id number], Partial fill upon patient request if [...] 1:12:00 PM EST, Route to Pharmacy Electronically, [facility]/pharmacy #[id number], Partial fill upon patient request if [...] Maintenance, 09/19/23 12:16:00 PM EDT, ER Tablet, [facility]/pharmacy #[id number], Partial fill upon patient request if the prescription is for a schedule II opioid drug., 175, cm, 04/07/23 11:49:00 EST, Height, 97, kg, 07/06/23 3:59:00 EDT, Dry Weight Start Date: 09/19/23 Stop Date: 12/18/23 Status: Ordered Quantity: 360.0 Unit: each Repeat number: 1 Indication: Type 2 diabetes mellitus with hyperglycemia metoprolol 50 mg oral tablet, extended release 50 mg, 1, tablet, By Mouth, Daily, # 90 tablet, Refills 3, Tot. Refills 3, Maintenance, 04/03/24 1:12:00 PM EST, Route to Pharmacy Electronically, [facility]/pharmacy #[id number], Partial fill upon patient request if [...] 03/19/24 Status: Ordered Repeat number: 1 Pen [place], 31 G x 5 mm BD Ultra [...] Refills, Maintenance, 03/22/24 3:00:00 AM EDT, Solution, [facility]/pharmacy #[id number], Partial fill upon patient request if [...] Team Personnel Name: Devin Gee NP Position: [facility] PCO Associate Professional Member Role: PCP Address: [address] [place] [address]- Telecom: Name: Rachel Pritchett RN Position: [facility] RN Member Role: Primary Care Nurse Name: Denise Rankin RN Position: [facility] RN Member Role: Primary Care Nurse Name: Carlos Ye RN Position: [facility] RN Member Role: Primary Care Nurse Name: Lord Ronquillo RN Position: [facility] RN Member Role: Primary Care Nurse Name: Jo Ann RN Position: [facility] RN Member Role: Primary Care Nurse Name: Khushboo Rain RN Position: [facility] RN Member Role: Primary Care Nurse Name: Panda Padilla RN Position: [facility] RN Member Role: Primary Care Nurse Name: Casey Miranda RN Position: [facility] RN Member Role: Primary Care Nurse Name: Mehnaz Green RN Position: [facility] RN Member Role: Primary Care Nurse Care Team Related Persons Name: DORCAS PICKETT Insurance Providers Guarantor name: SHANNAN SOSA [facility] Information #: 1 Payer: [facility] HEALTH PLAN Member Number: NA Policy Number: NA Group Number: NA
--- OUTSIDE RECORDS SUMMARY | 2024-04-30 14:28 | XMS_ITS | Continuity of Care Document ---
Author Organization [facility] Infectious Disease Address [address] [place] [address]- Care Team Providers Care Perforator Loader Name Role Phone Devin Gee NP Primary Care Physician Encounter [facility] Date(s): 03/14/24 - 04/13/24 [facility] Infectious Disease [address] [place] [address]- Encounter Type: Triage Allergies, Adverse Reactions, Alerts [...] Maintenance, 04/19/23 9:10:00 AM EST, EC Tablet, [facility]/pharmacy #[id number], Partial fill upon patient request [...] Refills, Maintenance, 04/03/24 1:12:00 PM EST, Tablet, [facility]/pharmacy #[id number], Partial fill upon patient request [...] Maintenance, 01/26/24 11:55:00 AM EDT, [facility], 174, cm, 01/05/24 14:46:00 EDT, Height, 91.4, [...] 5 Refills, Maintenance, 02/29/24 7:05:00 AM EDT, [facility]/pharmacy #0517, Partial fill upon patient request [...] Refills, Maintenance, 01/03/24 5:55:00 PM EDT, Solution, [facility], Partial fill upon patient request [...] Refills, Maintenance, 03/22/24 9:53:00 AM EDT, Tablet, [facility]/pharmacy #0517, Partial fill upon patient request [...] 1:12:00 PM EST, Route to Pharmacy Electronically, [facility]/pharmacy #[id number], Partial fill upon patient request [...] Maintenance, 09/19/23 12:16:00 PM EDT, ER Tablet, [facility]/pharmacy #0517, Partial fill upon patient request [...] 1:12:00 PM EST, Route to Pharmacy Electronically, [facility]/pharmacy #[id number], Partial fill upon patient request [...] 03/19/24 Status: Ordered Repeat number: 1 Pen [place], 31 G x 5 mm BD Ultra [...] PCO Associate Professional Member Role: PCP Address: [address] [place] [address]- Telecom: Name: Rachel Pritchett RN Position: S RN Member Role: Primary Care Nurse Name: Denise Rankin RN Position: S RN Member Role: Primary Care Nurse Name: Carlos Ye RN Position: S RN Member Role: Primary Care Nurse Name: Lord Ronquillo RN Position: S RN Member Role: Primary Care Nurse Name: Jo Ann RN Position: [facility] RN Member Role: Primary Care Nurse Name: Khushboo Rain RN Position: [facility] RN Member Role: Primary Care Nurse Name: Panda Padilla RN Position: [facility] RN Member Role: Primary Care Nurse Name: Casey Miranda RN Position: [facility] RN Member Role: Primary Care Nurse Name: Mehnaz Green RN Position: [facility] RN Member Role: Primary Care Nurse Care Team Related Persons Name: DORCAS PICKETT Insurance Providers Guarantor name: [facility] Information #: 1 Payer[facility] Member Number: [id number] Policy Number: NA Group Number: NA
--- OUTSIDE RECORDS SUMMARY | 2024-04-30 14:28 | XMS_ITS | Continuity of Care Document ---
Author Organization [facility] Address [address] [place] [address]- Care Team Providers Care Circuit Recorder Name Role Phone Gerard SANCHEZ, Devin Gould Primary Care Physician En[place] [facility] Date(s): 03/19/24 - 04/18/24 [facility] [address] [place] [id number] Attending Physician: Oxana Keith Admitting Physician: Oxana Keith Referring Physician: Oxana Ketih Encounter Type: Triage Allergies, Adverse Reactions, Alerts [...] Refills, Maintenance, 04/03/24 1:12:00 PM EST, Tablet, [facility]/pharmacy #[id number], Partial fill upon patient [...] 0 Refills, Maintenance, 01/26/24 11:55:00 AM EDT, [facility] STORE 97980, 174, cm, 01/05/24 14:46:00 EDT, Height, 91.4, [...] 5 Refills, Maintenance, 02/29/24 7:05:00 AM EDT, [facility]/pharmacy #0517, Partial fill upon patient [...] Refills, Maintenance, 01/03/24 5:55:00 PM EDT, Solution, [facility], Partial fill upon [...] Refills, Maintenance, 03/22/24 9:53:00 AM EDT, Tablet, [facility]/pharmacy #0517, Partial fill upon patient [...] 1:12:00 PM EST, Route to Pharmacy Electronically, [facility]/pharmacy #[id number], Partial fill upon patient [...] Maintenance, 09/19/23 12:16:00 PM EDT, ER Tablet, [facility]/pharmacy #0517, Partial fill upon patient [...] 1:12:00 PM EST, Route to Pharmacy Electronically, [facility]/pharmacy #[id number], Partial fill upon patient [...] 03/19/24 Status: Ordered Repeat number: 1 Pen [place], 31 G x 5 mm BD Ultra [...] Team Personnel Name: Devin Gee NP Position: [facility] PCO Associate Professional Member Role: PCP Address: [address] [place] [address]- Telecom: Name: Rachel Pritchett RN Position: S RN Member Role: Primary Care Nurse Name: Denise Rankin RN Position: S RN Member Role: Primary Care Nurse Name: Carlos Ye RN Position: [facility] RN Member Role: Primary Care Nurse Name: Lord Ronquillo RN Position: S RN Member Role: Primary Care Nurse Name: Jo Ann RN Position: [facility] RN Member Role: Primary Care Nurse Name: Khushboo Rain RN Position: [facility] RN Member Role: Primary Care Nurse Name: Panda Padilla RN Position: [facility] RN Member Role: Primary Care Nurse Name: Casey Miranda RN Position: [facility] RN Member Role: Primary Care Nurse Name: Mehnaz Green RN Position: [facility] RN Member Role: Primary Care Nurse Care Team Related Persons Name: DORCAS PICKETT Insurance Providers Guarantor name: SHANNAN SOSA [facility] Information #: 1 Payer: J[employer] [facility] Member Number: NA Policy Number: NA Group Number: NA
--- OUTSIDE RECORDS SUMMARY | 2024-04-30 14:28 | XMS_ITS | Continuity of Care Document ---
Author Organization [facility] Address [address] [place] [address]- Care Team Providers Care Butter Printer Name Role Phone Devin Gee NP Primary Care Physician ( [phone] Encounter [facility] Date(s): 02/19/24 - 04/10/24 [facility] [address] [place] [id number] Encounter Diagnosis Type 2 diabetes mellitus with hyperglycemia, with long-term current use of insulin(Discharge Diagnosis) - 03/06/24 Diabetes mellitus with foot ulcer(Discharge Diagnosis) - 03/06/24 Attending Physician: Autumn Palmer MD Admitting Physician: Autumn Palmer MD Referring Physician: Devin Gee NP Encounter Type: Pre-OutPatient One Time Allergies, Adverse Reactions, Alerts No Known Allergies [...] Maintenance, 04/19/23 9:10:00 AM EST, EC Tablet, [facility]/pharmacy #0517, Partial fill upon patient request [...] Refills, Maintenance, 04/03/24 1:12:00 PM EST, Tablet, [facility]/pharmacy #0517, Partial fill upon patient request [...] 0 Refills, Maintenance, 01/26/24 11:55:00 AM EDT, [facility] STORE 28259, 174, cm, 01/05/24 14:46:00 EDT, Height, 91.4, [...] 5 Refills, Maintenance, 02/29/24 7:05:00 AM EDT, [facility]/pharmacy #0517, Partial fill upon patient request [...] Refills, Maintenance, 01/03/24 5:55:00 PM EDT, Solution, [facility], Partial fill upon patient [...] Refills, Maintenance, 03/22/24 9:53:00 AM EDT, Tablet, [facility]/pharmacy #0517, Partial fill upon patient request [...] 1:12:00 PM EST, Route to Pharmacy Electronically, [facility]/pharmacy #0517, Partial fill upon patient request [...] Maintenance, 09/19/23 12:16:00 PM EDT, ER Tablet, [facility]/pharmacy #0517, Partial fill upon patient request [...] 1:12:00 PM EST, Route to Pharmacy Electronically, [facility]/pharmacy #0517, Partial fill upon patient request [...] 03/19/24 Status: Ordered Repeat number: 1 Pen [place], 31 G x 5 mm BD Ultra [...] Refills, Maintenance, 03/22/24 3:00:00 AM EDT, Solution, [facility]/pharmacy #0517, Partial fill upon patient request [...] DM2 (diabetes mellitus, type 2) Confirmed Active Diagnosis Diagnosis Type Effective Dates Health Status Cl inical Service Informant Type 2 diabetes mellitus with hyperglycemia, with long-term current use of insulin Discharge Diagnosis 03/06/24 Diabetes mellitus with foot ulcer Discharge Diagnosis 03/06/24 Social History Social History Type Response Smoking Status Former smoker, quit more than 30 days ago entered on: 07/07/21 Sex Sex Representation Male (finding) Patient Care team information Care Team Personnel Name: Gerard BOW MAKING MACHINE OPERATORDevin Position: [facility] PCO Associate Professional Member Role: PCP Address: [address] [place] [address] Telecom: Name: Rachel Pritchett RN Position: S [...] Care Nurse Name: Mehnaz Green RN Position: [facility] RN Member Role: Primary Care Nurse Care Team Related Persons Name: NIEVES DORCAS Insurance Providers Guarantor name: SHANNAN SOSA [facility] Information #: 2 Payer: P [employer] PLAN Member Number: [id number] Policy Number: NA Group Number: [id number] Health Plan Information #: 1 Payer: C [employer] Member Number: [id number] Policy Number: NA Group Number: [id number] Health Plan Information #: 3 Payer: J41 [employer] Member Number: NA Policy Number: NA Group Number: NA
--- OUTSIDE RECORDS SUMMARY | 2024-04-30 14:28 | XMS_ITS | Continuity of Care Document ---
Author Organization [facility] Address [address] [place] [address]- Care Team Providers Care Bottle Machine Operator Name Role Phone Devin Gee NP Primary Care Physician Encounter [facility] Date(s): 03/25/24 - 04/01/24 [facility] [address] [place] [address]- Attending Physician: Not on Staff, Attending MD Allergies, Adverse Reactions, Alerts No Known Allergies [...] Refills, Maintenance, 04/19/23 9:10:00 EST, EC Tablet, [facility]/pharmacy #0517, Partial fill upon patient [...] 3 Refills, Maintenance, 04/19/23 9:10:00 EST, Tablet, [facility]/pharmacy #0517, Partial fill upon patient [...] 0 Refills, Maintenance, 01/03/24 17:55:00 EDT, Solution, [facility], Partial fill upon patient requ... Start Date: 01/03/24 Status: Ordered levothyroxine 150 mcg (0.15 mg) oral tablet 1 tablet = 150 mcg, By Mouth, Daily, # 90 tablet, 0 Refills, Maintenance, 03/22/24 9:53:00 EDT, Tablet, [facility]/pharmacy #0517, Partial fill upon patient request if the prescription is for a schedule II opioid drug. Please disregard 0.25 dose that was sen... Start Date: 03/22/24 Status: Ordered lisinopril 10 mg oral tablet 10 mg, 1, tablet, By Mouth, Daily, # 90 tablet, Refills 3, Tot. Refills 3, Maintenance, 04/19/23 9:15:00 EST, Route to Pharmacy Electronically, [facility]/pharmacy #0517, Partial fill upon patient [...] 04/19/23 9:12:00 EST, Route to Pharmacy Electronically, [facility]/pharmacy #[id number], Partial fill upon patient request if the [...] drug. Start Date: 03/19/24 Status: Ordered Pen [place], 31 G x 5 mm BD Ultra [...] 1 Refills, Maintenance, 03/22/24 3:00:00 EDT, Solution, [facility]/pharmacy #0517, Partial fill upon patient [...] Team Personnel Name: Devin Gee NP Position: [facility] PCO Associate Professional Member Role: PCP Address: Address: [address] [place] [address]- Name: Rachel Pritchett RN Position: [facility] RN Member Role: Primary Care Nurse Name: [...] RN Member Role: Primary Care Nurse Name: Padna Padilla RN Position: S RN Member Role: Primary Care Nurse Name: Casey Miranda RN Position: S RN Member Role: Primary Care Nurse Name: Mehnaz Green RN Position: S RN Member Role: Primary Care Nurse Care Team Related Persons Name: DORCAS PICKETT Address: [place] [address]
--- OUTSIDE RECORDS SUMMARY | 2024-04-30 14:28 | XMS_ITS | Continuity of Care Document ---
Author Organization [facility] Address [address] [place] [address]- Care Team Providers Care Terrazzo Layer Helper Name Role Phone Devin Gee NP Primary Care Physician Encounter [facility] Date(s): 04/01/24 - 04/08/24 [facility] [address] [place] [address]- Attending Physician: Not on Staff, Attending MD Encounter Type: Office Visit Allergies, Adverse Reactions, Alerts No Known Allergies [...] Maintenance, 04/19/23 9:10:00 AM EST, EC Tablet, [facility]/pharmacy #0517, Partial fill upon patient request [...] Refills, Maintenance, 04/03/24 1:12:00 PM EST, Tablet, [facility]/pharmacy #0517, Partial fill upon patient request [...] 0 Refills, Maintenance, 01/26/24 11:55:00 AM EDT, [facility] STORE 20739, 174, cm, 01/05/24 14:46:00 EDT, Height, 91.4, [...] 5 Refills, Maintenance, 02/29/24 7:05:00 AM EDT, [facility]/pharmacy #0517, Partial fill upon patient request [...] Refills, Maintenance, 01/03/24 5:55:00 PM EDT, Solution, [facility], Partial fill upon patient [...] Refills, Maintenance, 03/22/24 9:53:00 AM EDT, Tablet, [facility]/pharmacy #0517, Partial fill upon patient request [...] 1:12:00 PM EST, Route to Pharmacy Electronically, [facility]/pharmacy #0517, Partial fill upon patient request [...] Maintenance, 09/19/23 12:16:00 PM EDT, ER Tablet, [facility]/pharmacy #0517, Partial fill upon patient request [...] 1:12:00 PM EST, Route to Pharmacy Electronically, [facility]/pharmacy #0570, Partial fill upon patient request if the [...] 03/19/24 Status: Ordered Repeat number: 1 Pen [place], 31 G x 5 mm BD Ultra [...] Refills, Maintenance, 03/22/24 3:00:00 AM EDT, Solution, [facility]/pharmacy #0517, Partial fill upon patient request [...] PCO Associate Professional Member Role: PCP Address: [address] [place] [id number] Telecom: Name: Rachel Pritchett RN Position: S [...] Care Nurse Name: Casey Miranda RN Position: [facility] RN Member Role: Primary Care Nurse Name: Mehnaz Green RN Position: S RN Member Role: Primary Care Nurse Care Team Related Persons Name: DORCAS PICKETT Insurance Providers Guarantor name: SHANNAN SOSA Health Plan Information #: 3 Payer: [employer] Member Number: [id number] Policy Number: NA Group Number: [id number] Health Plan Information #: 2 Payer: [employer] Member Number: [id number] Policy Number: NA Group Number: [id number] Health Plan Information #: 1 Payer: [employer] Member Number: [id number] Policy Number: NA Group Number: [id number]
--- OUTSIDE RECORDS SUMMARY | 2024-04-30 14:28 | XMS_ITS | Continuity of Care Document ---
Author Organization [facility] Address [address] [place] [address]- Care Team Providers Care Bulkhead Carpenter Name Role Phone Devin Gee NP Primary Care Physician Encounter [facility] Date(s): 03/29/24 - 04/28/24 [facility] [address] [place] [address]- Encounter Type: Triage Allergies, Adverse Reactions, Alerts [...] Maintenance, 04/19/23 9:10:00 AM EST, EC Tablet, [facility]/pharmacy #[id number], Partial fill upon patient request if the [...] Refills, Maintenance, 04/03/24 1:12:00 PM EST, Tablet, [facility]/pharmacy #0517, [...] Maintenance, 01/26/24 11:55:00 AM EDT, [facility], 174, cm, 01/05/24 14:46:00 EDT, Height, 91.4, [...] 5 Refills, Maintenance, 02/29/24 7:05:00 AM EDT, [facility]/pharmacy #0517, Partial fill [...] Refills, Maintenance, 01/03/24 5:55:00 PM EDT, Solution, [facility], Partial fill upon patient [...] Refills, Maintenance, 03/22/24 9:53:00 AM EDT, Tablet, [facility]/pharmacy #0517, [...] 1:12:00 PM EST, [facility] Pharm[facility], [facility] [...] Maintenance, 09/19/23 12:16:00 PM EDT, ER Tablet, [facility]/pharmacy #0517, Partial [...] 1:12:00 PM EST, [facility] Pharmacy [facility], [facility] [...] 03/19/24 Status: Ordered Repeat number: 1 Pen [place], 31 G x 5 mm BD Ultra [...] Status: Ordered Repeat number: 1 Trulicity Pen 1.5 mg/0.5 mL subcutaneous solution 0.5 mL = 1.5 mg, Subcutaneous Injection, Every week, rotate injection sites, # 2 mL, 1 Refills, Maintenance, 04/22/24 6:38:00 PM EST, [facility], [id number], Partial fill upon patient request ifthe prescription is for a schedule II opioid drug., 174, cm, 03/22/24 8:51:00 EDT, Height, 91.4, kg, 12/22/23 14:06:00 EDT, Dry Weight Start Date: 04/22/24 Status: Ordered Quantity: 2.0 Unit: mL Repeat [...] PCO Associate Professional Member Role: PCP Address: [address] [place], [place] [address]com: Name: Rachel Pritchett RN Position: S RN Member Role: Primary Care Nurse Name: Denise Rankin RN Position: S RN Member Role: Primary Care Nurse Name: Carlos Ye RN Position: S RN Member Role: Primary Care Nurse Name: Lord Ronquillo RN Position: S RN Member Role: Primary Care Nurse Name: Jo Ann RN Position: [facility] RN Member Role: Primary Care Nurse Name: Khushboo Rain RN Position: [facility] RN Member Role: Primary Care Nurse Name: Panda Padilla RN Position: [facility] RN Member Role: Primary Care Nurse Name: Casey Miranda RN Position: [facility] RN Member Role: Primary Care Nurse Name: Mehnaz Green RN Position: [facility] RN Member Role: Primary Care Nurse Care Team Related Persons Name: DORCAS PICKETT Insurance Providers Guarantor name: [facility] Information #: 1 Payer: [address] [place], [place] [address] Member Number: NA Policy Number: NA Group Number: NA
--- OUTSIDE RECORDS SUMMARY | 2024-04-30 14:28 | XMS_ITS | Continuity of Care Document ---
Author Organization [facility] Address [address] [place] [address]- Care Team Providers Care Professor Of English Name Role Phone Gerard SANCHEZ, Devin Gould Primary Care Physician [id number] Date(s): 04/08/24 - 04/15/24 [facility] [address] [place] [address]- Attending Physician: Not on Staff, Attending MD Referring Physician: Devin Gee NP Encounter Type: Office Visit Allergies, Adverse Reactions, [...] Refills, Maintenance, 04/03/24 1:12:00 PM EST, Tablet, [facility]/pharmacy #[id number], Partial fill upon patient [...] Maintenance, 01/26/24 11:55:00 AM EDT, [id number], 174, cm, 01/05/24 14:46:00 EDT, Height, 91.4, [...] 5 Refills, Maintenance, 02/29/24 7:05:00 AM EDT, [id number], Partial fill upon patient request [...] Refills, Maintenance, 01/03/24 5:55:00 PM EDT, Solution, [facility], Partial fill upon patient [...] Refills, Maintenance, 03/22/24 9:53:00 AM EDT, Tablet, [facility]/pharmacy #[id number], Partial fill upon patient [...] 1:12:00 PM EST, Route to Pharmacy Electronically, [facility]/pharmacy #[id number], Partial fill upon patient [...] Maintenance, 09/19/23 12:16:00 PM EDT, ER Tablet, [facility]/pharmacy #[id number], Partial fill upon patient [...] 1:12:00 PM EST, Route to Pharmacy Electronically, [facility]/pharmacy #[id number], Partial fill upon patient [...] 03/19/24 Status: Ordered Repeat number: 1 Pen [place], 31 G x 5 mm BD Ultra [...] Refills, Maintenance, 03/22/24 3:00:00 AM EDT, Solution, [facility]/pharmacy #[id number], Partial fill upon patient [...] on: 07/07/21 Sex Sex Representation Male (finding) Note * Angelique Palafox: PERFORM Event Display: Patient Education/Instruction Authored Date: [id number] Ambulatory Adult Visit Summary [facility] [address] [place] [id number] [address] [address] Name: SHANNAN SOSA : 1965?? Visit: 04/08/2024 10:56?? Ambulatory Visit Instructions ?? Your Care Team Primary Care Provider Gerard SANCHEZ, Devin Gould? This Visit Provider [facility] Nurse What to do next Scheduled Follow-Up Appointments Monday 11:15 AM EST ?? With: Benedicto SANCHEZ, Eva Rodriguez Where: [facility] [address] [facility] [address] [place] [address]- Status: Pending Monday 10:00 AM EST ?? Where: Diabetic Teaching Status: Pending Future Orders B Type Natriuretic Peptide (ProBNP) - Once, *Est. 03/23/23 due within 1 months, Single or RecurringFuture Order?? Medications The list below reflects the information in our records and provided by you today along with any changes made during this visit. Please continue your medications until treatment is completed or stopped by your provider. If this is different from the information you have or there are other questions,please contact the prescribing provider. What How Much When Why Instructions Unchanged Acetaminophen (acetaminophen 325 mg oral tablet) 40 each, 0 Refill(s), TAKE 3 TABLETS BY MOUTH EVERY 8 HOURS NEEDED FOR MILD PAIN OR TEMPERATURE GREATER THAN 100.5. (LIMIT 4000MG OF TYLENOL/ ACETAMINOPHEN PER DAY) ?? Unchanged Aspirin (aspirin 81 mg oral delayed release tablet) 81 Milligram Oral Daily Unchanged Aspirin (Aspirin Low Dose 81 mg oral delayed release tablet) 90 each, 0 Refill(s), TAKE 1 TABLET BY MOUTH EVERY DAY ?? Unchanged Atorvastatin (atorvastatin 80 mg oral tablet) 80 Milligram Oral Daily at Bedtime Unchanged Barium Sulfate (Readi-Cat 2 Smoothie Creamy Vanilla 2% oral suspension) 900 mL, 0 Refill(s), DRINK 1 BOTTLE 6 HOURS PRIOR TO TEST AND SECOND BOTTLE 90 MIN PRIOR TO SCAN ?? Unchanged Cephalexin (cephalexin monohydrate 500 mg oral capsule) 30 each, 0 Refill(s), TAKE 1 CAPSULE BY MOUTH 3 TIMES A DAY FOR 10 DAYS ?? Unchanged Cephalexin (cephalexin monohydrate 500 mg oral tablet) 56 each, 0 Refill(s), TAKE 1 TABLET BY MOUTH FOUR TIMES A DAY FOR 14 DAYS ?? Unchanged Cyclobenzaprine (cyclobenzaprine 10 mg oral tablet) 15 each, 0 Refill(s), TAKE 1 TABLET BY MOUTH EVERY 8 HOURS NEEDED FOR MUSCLE SPASM ?? Unchanged dulaglutide (Trulicity Pen 0.75 mg/ 0.5 mL subcutaneous solution) 0.5 Milliliter Subcutaneous Injection Every week Type 2 diabetes mellitus with hyperglycemia, with long-term current use of insulin rotate injection sites ?? Unchanged Durable Medical Equipment (Pen [place], 31 G x 5 mm BD Ultra Fine III) See instructions Type 2 diabetes mellitus with hyperglycemia, with long-term current use of insulin Duration: 30 Days use as directed for Type 2 Diabetes Mellitus E11.65 ?? Unchanged Insulin Glargine (Lantus Solostar Pen 100 units/ mL subcutaneous solution) 25 unit(s) Subcutaneous Injection Daily at Bedtime Please reach out to your PCP for continuation/ ??dose management of insulin ?? Unchanged Insulin Lispro (Humalog Kwik Pen 100 units/ mL subcutaneous injection) See instructions INJECT SUBCUTANEOUSLY 3 TIMES A DAY BEFORE MEALS << SLIDING SCALE COMMENTS >> 100 - 1496 UNITS CALL IF LESS THAN 70 150 - 199 8 UNITS 200 - 249 10 UNITS 250 - 299 12 UNITS 300 - 349 14 UNITS 350 - 399 16 UNITS CALL IF GREATER THAN 400 << SLIDING SCALE COMMENTS >> ?? Unchanged Insulin Lispro (HumaLOG KwikPen 100 units/ mL injectable solution) See instructions Type 2 diabetes mellitus with hyperglycemia Please take at least 10-15 minutes before meals 3 times a day per the scale: BG 100-149: 10 units ?; BG ; 150-199: 12 units; BG 200-249: 14 units; BG ; 250-299: 16 units ; BG ; 300-349: 18; ??units; BG 350-399: 20; ??units; BG >400: 22 units; E11.65; MDD 50 units ?? Unchanged Levothyroxine (levothyroxine 150 mcg (0.15 mg) oral tablet) 1 tab(s) Oral Daily Unchanged Lisinopril (lisinopril 10 mg oral tablet) 1 tab(s) Oral Daily Unchanged Metformin (MetFORMIN (Eqv-Glucophage XR) 500 mg oral tablet, extended release) 120 each, 0 Refill(s), TAKE 2 TABLETS BY MOUTH TWICE A DAY ?? Unchanged Metformin (metFORMIN 500 mg oral tablet, extended release) 1 tab(s) Oral Twice a day Type 2 diabetes mellitus with hyperglycemia, with long-term current use of insulin Please take as directed. 90 day supply. 4 tables daily split into two doses ?? Unchanged Metoprolol (metoprolol 50 mg oral tablet, extended release) 1 tab(s) Oral Daily Unchanged Metoprolol (Metoprolol Succinate ER 50 mg oral tablet, extended release) 90 each, 0 Refill(s), TAKE 1 TABLET BY MOUTH EVERY DAY ?? Unchanged Miscellaneous Rx 30 each, 0 Refill(s), USE TO INJECT NIGHTLY WITH LANTUS ?? Unchanged OXacillin (OXacillin Inj) 2 gram IV Piggyback Every 4 hours Unchanged Oxycodone (oxyCODONE 5 mg oral tablet) 6 each, 0 Refill(s), TAKE 1/ 2 (HALF) TABLET BY MOUTH EVERY 6 HOURS NEEDED FOR MODERATE PAIN. ?? Unchanged Tamsulosin (tamsulosin 0.4 mg oral capsule) TAKE 1 CAPSULE BY MOUTH EVERY DAY FOR 10 DAYS ?? Medications and Immunizations Administered Medications Given During Visit No medications given during this visit.?? Allergies (NKA means No Known Allergies) NKA Common Emergency Awareness Tips IS IT A STROKE? Act FAST and Check for these signs: FACE Does the face look uneven? ARM Does one arm drift down? SPEECH Does their speech sound strange? TIME Call at any sign of stroke ?? Heart Attack Signs Chest discomfort: Most heart attacks involve discomfort in the center of the chest and lasts more than a few minutes, or goes away and comes back. It can feel like uncomfortable pressure, squeezing, fullness or pain. Discomfort in upper body: Symptoms can include pain or discomfort in one or both arms, back, neck, jaw or stomach. Shortness of breath: With or without discomfort. Other signs: Breaking out in a cold sweat, nausea, or lightheaded. Remember, MINUTES DO MATTER. If you experience any of these heart attack warning signs, call to get immediate medical attention! ?? Smoking can increase your chances of developing chronic health problems and can cause harmful effects to other family members in your house. If you smoke, you are strongly encouraged to quit. Please call [employer] at [phone] or [phone] ([phone]) or log in to [email or web address] for referrals to smoking cessation programs. ?? The National Suicide Prevention Hotline is available 12/12 if you or someone you know needs to find a reason to keep living. By calling 4-750-691-GuardiCore (8737) you'll be connected to a skilled, trained counselor at a crisis center in your area. [facility] [employer] Portal You can view and manage your care through the patient portal or by using a health care dionicio of your choosing. [employer] is a website that allows you to securely view your medical information including your hospital discharge summary, office visit summaries, medications and follow-up visits. You can also request appointments, renew medications, and request access to your medical information using a health care dionicio of your choosing, or just ask a question. You can enroll at [email or web address] or register during your next office visit. [facility], in keeping with [facility] guidance, no longer requires face masks for staff, patientsor visitors in most situations. Similiar to time spent indoors at other locations, there is the chance that you were exposed to repiratory viruses during your time with us (such as flu or COVID-19). If you develop symptoms concerning for a viral respiratory infection, please seek testing (and treatment if indicated) from your medical provider or home test kit. ?? Disclaimer: The information provided is of a general nature and is intended to be used in conjunction with the recommendations and advice of your health care practitioner. Every effort has been made to ensure that the information provided is accurate and complete at the time it is provided to you however, as your needs change, or, as new information becomes available, different or additional instructions may be required. ?? If you have questions, please consult with your primary care provider or pharmacist, as appropriate. This information is not intended to serve as substitution for assessment and evaluation by a qualified health care provider. If you do not have a primary care provider, you may find a [facility] [employer] provider by calling [employer] at [phone]. Patient Care team information Care Team Personnel Name: Devin Gee NP Position: [facility] PCO Associate Professional Member Role: PCP Address: [address] [place] [id number] Telecom: Name: Rachel Pritchett RN Position: S [...] Care Nurse Name: Khushboo Rain RN Position: [facility] RN Member Role: Primary Care Nurse Name: Panda Padilla RN Position: [facility] RN Member Role: Primary Care Nurse Name: Casey Miranda RN Position: [facility] RN Member Role: Primary Care Nurse Name: Mehnaz Green RN Position: [facility] RN Member Role: Primary Care Nurse Care Team Related Persons Name: DORCAS PICKETT Insurance Providers Guarantor name: SHANNAN SOSA [facility] Information #: 1 Payer: [employer] Member Number: [id number] Policy Number: NA Group Number: [id number] Health Plan Information #: 3 Payer: [employer] Member Number: [id number] Policy Number: NA Group Number: [id number] Health Plan Information #: 2 Payer: [employer] Member Number: [id number] Policy Number: NA Group Number: [id number] Health Plan Information #: 4 Payer: [employer] Member Number: NA Policy Number: NA Group Number: NA
== END 2024-04-23 14:05 | disposition home or self-care (01) ==
PROVIDERS: PCP Internal Medicine; Visit Provider Surgery
DX: E11.621 Type 2 diabetes mellitus with foot ulcer (principal); L97.425 Non-pressure chronic ulcer of left heel and midfoot with muscle involvement without evidence of necrosis
CPT/HCPCS: 99024

== ENCOUNTER 2024-04-25 09:25 | Outpatient (AMB) | payer OTHER, SELFPAY ==
--- NOTE | 2024-04-25 09:28 | A.OFFVIS_ITS ---
Vital Signs 3 04/25/24 09:34 Height 5 ft 9 in Weight 210 lb BMI 31.0 BP 166/87 H Blood Pressure Location Rt brachial Position Sitting Pulse 87 Intake Visit Reasons: S/P skin graft form Lt hip to Lt foot Intake Note: Patient is seen in office for dressing change, post skin graft of the left hip to the left foot. Pt c/o: reports no change with wound. Denies pain, oozing. mm:07/17/23 Gravity Flow Irrigator Required: No Accompanied by: spouse Bushra Allergies No Known Allergies Allergy (Verified 04/25/24 09:34) HPI Comments Details: Patient returns today for wound check and dressing change following left foot skin graft. He denies any new symptoms and generally feels well. [facility] Medical History Hx of bacteremia Hypothyroidism RI (myocardial infarction) Diabetes mellitus CAD (coronary artery disease) Surgical History S/P PICC central line placement (~12/2023) Hx of foot surgery S/P CABG x 4 (~12/2022) Family History Other Family history unknown Social History Household Members: Spouse Housing: House Are you a primary child day care provider to a significant other at home: No Do you presently have visiting nurse or other home services: No Unable to assess alcohol history related to: Unknown Patient Tobacco Use Status: Former Tobacco user Tobacco use type: Cigarette Physical Exam Const General: no acute distress Nutritional Appearance: well nourished Limitations: wheelchair Resp Effort & Inspection: normal respiratory effort Extrem Other: Left foot dressing changed. Good take of skin graft with 100% take and intact sutures. New dressings applied. Preop photo: Postop day 2 photo: Postop day 8: Dressings changed today and graft remains 100% take. Applied bacitracin ointment moisturize skin followed by dry sterile dressing and 4 in Shira. 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 Graft remains intact with 100% take. I recommended starting applying bacitracin ointment to the skin graft followed by dry sterile dressings. Patient family was instructed on dressing changes every other day. He will return in 2 weeks for wound check. He is welcome to call for any new concerns. Coding Level of Care Code Global (87409) Diagnoses Diabetic ulcer of left midfoot associated with type 2 diabetes mellitus, with muscle involvement without evidence of necrosis E11.621; L97.425 Diabetic foot ulcer location: midfoot Diabetes mellitus type: type 2 Laterality: left Non-pressure ulcer stage: with muscle involvement without evidence of necrosis
[2024-04-25 09:34] VITALS: BP 166/87; PULSE 87; BMI 31.0
== END 2024-04-25 09:53 | disposition home or self-care (01) ==
PROVIDERS: PCP Surgery; Visit Provider Surgery
DX: E11.621 Type 2 diabetes mellitus with foot ulcer (principal); L97.425 Non-pressure chronic ulcer of left heel and midfoot with muscle involvement without evidence of necrosis
CPT/HCPCS: 99024

== ENCOUNTER 2024-05-09 09:50 | Outpatient (AMB) | payer OTHER, SELFPAY ==
--- OUTSIDE RECORDS SUMMARY | 2024-05-09 09:53 | XMS_ITS | Continuity of Care Document ---
Author Organization [facility] Address [address] [place] [address]- Care Team Providers Care Ehr Trainer Name Role Phone Gerard CLOTH EXAMINER, Devin Gould Primary Care Physician ( [phone] Encounter [facility] Date(s): 04/05/24 - 05/05/24 [facility] [address] [place] [phone]- Encounter Type: Triage Allergies, Adverse Reactions, Alerts [...] Maintenance, 04/19/23 9:10:00 AM EST, EC Tablet, [facility]/pharmacy #[id number], Partial fill upon patient [...] Refills, Maintenance, 04/03/24 1:12:00 PM EST, Tablet, [facility]/pharmacy #[id number], Partial fill upon patient [...] 0 Refills, Maintenance, 01/26/24 11:55:00 AM EDT, [id number], 174, cm, 01/05/24 14:46:00 EDT, Height, 91.4, [...] 5 Refills, Maintenance, 02/29/24 7:05:00 AM EDT, [facility]/pharmacy #[id number], Partial fill upon patient [...] Refills, Maintenance, 01/03/24 5:55:00 PM EDT, Solution, [facility], Partial fill upon patient [...] Refills, Maintenance, 03/22/24 9:53:00 AM EDT, Tablet, [facility]/pharmacy #[id number], Partial fill upon patient [...] 1:12:00 PM EST, Route to Pharmacy Electronically, [facility]/pharmacy #[id number], Partial fill upon patient [...] Maintenance, 09/19/23 12:16:00 PM EDT, ER Tablet, [facility]/pharmacy #[id number], Partial fill upon patient [...] 1:12:00 PM EST, Route to Pharmacy Electronically, [facility]/pharmacy #[id number], Partial fill upon patient request if the [...] 03/19/24 Status: Ordered Repeat number: 1 Pen [place], 31 G x 5 mm BD Ultra [...] Refills, Maintenance, 04/22/24 6:38:00 PM EST, Solution, [facility]/pharmacy #[id number], Partial fill upon patient request ifthe [...] Team Personnel Name: Devin Gee NP Position: [facility] PCO Associate Professional Member Role: PCP Address: [address] [place] [address] Telecom: Name: Rachel Pritchett RN Position: [facility] RN Member Role: Primary Care Nurse Name: Denise Rankin RN Position: [facility] RN Member Role: Primary Care Nurse Name: Carlos Ye RN Position: [facility] RN Member Role: Primary Care Nurse Name: Lord Ronquillo RN Position: [facility] RN Member Role: Primary Care Nurse Name: Jo Ann RN Position: [facility] RN Member Role: Primary Care Nurse Name: Khushboo Rain RN Position: [facility] RN Member Role: Primary Care Nurse Name: Panda Padilla RN Position: [facility] RN Member Role: Primary Care Nurse Name: Caesy Miranda RN Position: [facility] RN Member Role: Primary Care Nurse Name: Mehnaz Green RN Position: [facility] RN Member Role: Primary Care Nurse Care Team Related Persons Name: DORCAS PICKETT Insurance Providers Guarantor name: SHANNAN SOSA [facility] Information #: 1 Payer: [employer] [facility] Member Number: NA Policy Number: NA Group Number: NA
--- NOTE | 2024-05-09 09:58 | MHC.OFFVIS ---
Vital Signs 05/09/24 10:00 Height 5 ft 9 in Weight 207 lb 10.807 oz BMI 30.7 Respiration 18 Pulse 80 Intake Visit Reasons: 2 wk fu S/P skin graft form Lt hip to Lt foot Intake Note: Patient is seen in office for 2 weeks follow up visit, post skin graft of the left hip to the left foot. Pt c/o: denies any concerns, healing as expected, area clean and dry Allergies No Known Allergies Allergy (Verified 05/09/24 10:01) HPI Comments Details: Patient returns following skin graft placement on 04/15/2024. He feels well and denies any ongoing symptoms. He returns for final wound check. [facility] Medical History Hx of bacteremia Hypothyroidism [place] (myocardial infarction) Diabetes mellitus CAD (coronary artery disease) Surgical History S/P PICC central line placement (~12/2023) Hx of foot surgery S/P CABG x 4 (~12/2022) Family History Other Family history unknown Social History Household Members: Spouse Housing: House Are you a primary animal care attendant to a significant other at home: No Do you presently have visiting nurse or other home services: No Unable to assess alcohol history related to: Unknown Patient Tobacco Use Status: Former Tobacco user Tobacco use type: Cigarette Physical Exam Vital Signs: Last Vital Signs Pulse 80 05/09/24 10:00 Resp 18 05/09/24 10:00 BMI result Body Mass Index 30.7 Extrem Other: Left foot wound is clean, dry, and intact. The skin graft is completely healed. Some overlying callus formation was easily excised using a scissors. Remaining sutures were also removed. 100% take of graft is noted. Donor site is also clean and intact with no open areas. 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 He may leave the wound open with no further dressing required. He should follow up as needed. Coding Level of Care Code Global (37209) Diagnoses Diabetic ulcer of left midfoot associated with type 2 diabetes mellitus, with muscle involvement without evidence of necrosis E11.621; L97.425 Diabetic foot ulcer location: midfoot Diabetes mellitus type: type 2 Laterality: left Non-pressure ulcer stage: with muscle involvement without evidence of necrosis
[2024-05-09 10:00] VITALS: PULSE 80; RESP 18; BMI 30.7
== END 2024-05-09 10:14 | disposition home or self-care (01) ==
PROVIDERS: PCP Surgery; Visit Provider Surgery
DX: E11.621 Type 2 diabetes mellitus with foot ulcer (principal); L97.425 Non-pressure chronic ulcer of left heel and midfoot with muscle involvement without evidence of necrosis
CPT/HCPCS: 99024